=== PATIENT | male | born 1980 | race Asian ===

== ENCOUNTER 2017-02-21 22:28 | Emergency (ER) | payer BC ==
[~2017-02-21] VITALS: Ht 185.4 cm; Wt 113.4 kg
--- OUTSIDE RECORDS SUMMARY | 2017-02-21 22:33 | XMS REPORT | Clinical Summary ---
Author Author [facility] Organization [facility] Address Unknown Phone Unavailable Care Team Providers Care Comic Writer Name Role Phone PCP Unavailable Source Comments Some departments are not documenting in the electronic medical record. If you do not see the information that you expected, contact Release of Information in the Health Information Management department at [phone] for further assistance in locating additional records.[facility] Allergies No Known Allergies Current Medications Prescription Sig. Disp. Refills Start End Date Status Date ARIPiprazole (ABILIFY) 15 Take 1 Tab by mouth 30 Tab 0 07/28/19 Active mg tablet daily. For psychosis 15 Active Problems Problem Noted Date Chronic psychosis 07/27/2014 Social History Tobacco Use Types Packs/Day Years Used Date Never Smoker Sex Assigned at Date Recorded Not on file Last Filed Vital Signs Vital Sign Reading Time Taken Blood Pressure 129/88 07/27/2014 7:57 AM CDT Pulse 79 07/27/2014 7:57 AM CDT Temperature - - Respiratory Rate - - Oxygen Saturation - - Inhaled Oxygen - - Concentration Weight 115.2 kg (254 lb) 07/27/2014 7:57 AM CDT Height 182.9 cm (6') 07/27/2014 7:57 AM CDT Body Mass Index 34.45 07/27/2014 7:57 AM CDT Plan of Treatment Health Maintenance Due Date Last Done Comments PHYSICAL (COMPREHENSIVE) 1989 EXAM PERTUSSIS VACCINE 1993 TETANUS VACCINE 08/06/1999 INFLUENZA VACCINE 09/26/2016 Results Not on filefrom Last 3 Months
--- OUTSIDE RECORDS SUMMARY | 2017-02-21 22:33 | XMS REPORT ---
Author Author HARRY CUEVAS [facility] Address [address] [place] [address] Care Team Providers Care Automation And Control Engineer Name Role Phone HARRY CUEVAS Unavailable PROBLEMS Type Condition ICD9-CM Code [id number] Code Onset Dates Condition Status SNOMED Code Problem Paranoid schizophrenia F20.0 Active 32870109 ALLERGIES No Information SOCIAL HISTORY Never Assessed PLAN OF CARE VITAL SIGNS MEDICATIONS Unknown Medications RESULTS No Results PROCEDURES No Known procedures IMMUNIZATIONS No Known Immunizations
--- OUTSIDE RECORDS SUMMARY | 2017-02-21 22:33 | XMS REPORT ---
Author Author CHRIS BELTRÁN Organization [facility] Address [address] [place] [address] Care Team Providers Care Insole Department Worker Name Role Phone CHRIS BELTRÁN Unavailable PROBLEMS Type Condition ICD9-CM Code EZH30-GI Code Onset Dates Condition Status SNOMED Code Problem Paranoid schizophrenia F20.0 Active 13122515 ALLERGIES No Known Allergies SOCIAL HISTORY Never Assessed PLAN OF CARE Activity Details Follow Up 4 Weeks Reason: VITAL SIGNS Height 72.0 in 2016-06-28 Weight 253.4 lbs 2016-06-28 Heart Rate 88 bpm 2016-06-28 Respiratory Rate 20 2016-06-28 BMI 34.36 kg/m2 2016-06-28 Blood pressure systolic 130 mmHg 2016-06-28 Blood pressure diastolic 90 mmHg 2016-06-28 MEDICATIONS Medication Instructions Dosage Frequency Start Date End Date Duration Status Trihexyphenidyl HCl 2 MG Orally Three times a day 1 tablet with meals 8h Apr, 30 day(s) Active Abilify 10 mg Orally twice a day 1 tablet 12h 30 day(s) Active Vitamin D3 Maximum Strength 5000 UNIT Orally Once a day 1 capsule 24h Active Benztropine Mesylate 0.5 MG Orally PRN q daily with dose of Loxapine 1 tablet June, 30 day(s) Active Loxapine Succinate 5 mg Orally As needed, up to Four times a day 1 capsule June, 30 day(s) Active RESULTS No Results PROCEDURES No Known procedures IMMUNIZATIONS No Known Immunizations
--- OUTSIDE RECORDS SUMMARY | 2017-02-21 22:33 | XMS REPORT | Continuity of Care Document ---
Author Author [facility] Organization [facility] Address Unknown Phone Unavailable Allergies There is no data. Medications There is no data. Problems Date Dx Coded Attending Type Code Diagnosis Diagnosed By 12/06/2014 Ot G47.33 OBSTRUCTIVE SLEEP APNEA (ADULT) (PEDIATR 03/02/2015 FRANKLIN JOSHUA DO Ot G47.33 03/02/2015 FRANKLIN JOSHUA DO Ot Z82.0 08/06/2015 FRANKLIN JOSHUA DO Ot G47.33 OBSTRUCTIVE SLEEP APNEA (ADULT) (PEDIATR 08/06/2015 FRANKLIN JOSHUA DO Ot Z82.0 FAMILY HISTORY OF EPILEPSY AND OTH DIS O 08/09/2015 FRANKLIN JOSHUA DO Ot G47.33 OBSTRUCTIVE SLEEP APNEA (ADULT) (PEDIATR 08/09/2015 FRANKLIN JOSHUA DO Ot Z82.0 FAMILY HISTORY OF EPILEPSY AND OTH DIS O 08/10/2015 FRANKLIN JOSHUA DO Ot G47.33 OBSTRUCTIVE SLEEP APNEA (ADULT) (PEDIATR 08/10/2015 FRANKLIN JOSHUA DO Ot Z82.0 FAMILY HISTORY OF EPILEPSY AND OTH DIS O 08/12/2015 VALENTÍN SHERIDAN DO Ot R51 HEADACHE 09/02/2015 VALENTÍN SHERIDAN DO Ot R51 HEADACHE Procedures There is no data. Results There is no data. Encounters ACCT No. Visit Date/Time Discharge Status Pt. Type Provider Facility Loc./Unit Complaint [id number] 08/09/2015 11:17:00 08/09/2015 23:59:59 CLS Outpatient VALENTÍN SHERIDAN DO [facility] RAD [id number] 02/15/2015 16:37:00 02/15/2015 23:59:59 CLS Outpatient FRANKLIN JOSHUA DO [facility] RT [id number] 12/05/2014 20:18:00 Document Registration
--- OUTSIDE RECORDS SUMMARY | 2017-02-21 22:33 | XMS REPORT ---
Author Author CHRIS BELTRÁN Organization [facility] Address [address] [place] [address] Care Team Providers Care Riveter Name Role Phone CHRIS BELTRÁN Unavailable PROBLEMS Type Condition ICD9-CM Code CPB64-UA Code Onset Dates Condition Status SNOMED Code Problem Paranoid schizophrenia F20.0 Active [id number] ALLERGIES No Information SOCIAL HISTORY Never Assessed PLAN OF CARE Activity Details Follow Up 4 Weeks Reason: VITAL SIGNS MEDICATIONS Medication Instructions Dosage Frequency Start Date End Date Duration Status Loxapine Succinate 5 mg Orally As needed, up to Four times a day 1 capsule 30 day(s) Active Klonopin 0.5 MG Orally Twice a day PRN 1 tablet June, 30 days Active Abilify 10 mg Orally twice a day 1 tablet 12h 30 day(s) Active Benztropine Mesylate 0.5 MG Orally PRN q daily with dose of Loxapine 1 tablet 30 day(s) Active RESULTS No Results PROCEDURES No Known procedures IMMUNIZATIONS No Known Immunizations
--- OUTSIDE RECORDS SUMMARY | 2017-02-21 22:33 | XMS REPORT ---
Author Author CHRIS BELTRÁN [facility] [place] Address [address] [place] [address] Care Team Providers Care Video Intern Name Role Phone CHRIS BELTRÁN Unavailable PROBLEMS Type Condition ICD9-CM Code [id number] Code Onset Dates Condition Status SNOMED Code Problem Paranoid schizophrenia F20.0 Active [id number] ALLERGIES No Information SOCIAL HISTORY Never Assessed PLAN OF CARE VITAL SIGNS MEDICATIONS Unknown Medications RESULTS No Results PROCEDURES No Known procedures IMMUNIZATIONS No Known Immunizations
--- OUTSIDE RECORDS SUMMARY | 2017-02-21 22:33 | XMS REPORT ---
Author Author HARRY CUEVAS [facility] Address [address] [place] [address] Care Team Providers Care [place] Program Coordinator Name Role Phone HARRY CUEVAS Unavailable PROBLEMS Type Condition ICD9-CM Code OON68-UB Code Onset Dates Condition Status SNOMED Code Problem Paranoid schizophrenia F20.0 Active [id number] ALLERGIES No Information SOCIAL HISTORY Never Assessed PLAN OF CARE Activity Details Follow Up prn Reason: VITAL SIGNS MEDICATIONS Medication Instructions Dosage Frequency Start Date End Date Duration Status Abilify Active RESULTS No Results PROCEDURES Procedure Date Ordered Result Body Site Psych diagnostic evaluation, new patient Apr 21, 2016 IMMUNIZATIONS No Known Immunizations
[2017-02-21 23:14] LABS: BASOPHILS % (AUTO) 1 % (0-10); EOSINOPHILS # (AUTO) 0.8 10^3/uL (0.0-0.3); EOSINOPHILS % (AUTO) 10 % (0-10); LYMPHOCYTES # (AUTO) 2.8 X 10^3 (1.0-4.0); LYMPHOCYTES % (AUTO) 33 % (12-44); MEAN CORPUSCULAR HEMOGLOBIN 28 PG (25-34); MEAN CORPUSCULAR HGB CONC 35 G/DL (32-36); MEAN CORPUSCULAR VOLUME 79 FL (80-99); MEAN PLATELET VOLUME 7.9 FL (7.4-10.4); MONOCYTES # (AUTO) 0.5 X 10^3 (0.0-1.0); MONOCYTES % (AUTO) 6 % (0-12); NEUTROPHILS # (AUTO) 4.3 X 10^3 (1.8-7.8); NEUTROPHILS % (AUTO) 50 % (42-75); PLATELET COUNT 334 10^3/uL (130-400); RED BLOOD COUNT 5.09 10^6/uL (4.35-5.85); RED CELL DISTRIBUTION WIDTH 12.9 % (10.0-14.5); WHITE BLOOD COUNT 8.5 10^3/uL (4.3-11.0)
--- NOTE | 2017-02-21 23:14 | ED Lower Extremity ---
General Chief Complaint: Lower Extremity Stated Complaint: BILAT FOOT SWELLING Nursing Triage Note: pt presents to er with complaint of bilat leg swelling, rash, and redness. pt also has redness on his stomach. states the swelling started today and the redness started x2 weeks ago. Nursing Sepsis Screen: No Definite Risk Source: patient Exam Limitations: no limitations History of Present Illness Time seen by provider: 22:55 Initial Comments Here with bilateral lower extremity swelling, redness and rash that extends up both legs. Noted redness down to the toes bilaterally with right greater than left. States that he was standing quite a bit today and did try to work out today because she's had fairly significant recent weight gain. Noted that the redness is been associated with a rash over the last 2 weeks. Denies breathing problems. Denies fever or chills. Onset: this afternoon (swelling) Severity: moderate Pain/Injury Location: bilateral leg Method of Injury: unknown Modifying Factors: Improves With Rest Allergies and Home Medications Allergies Coded Allergies: Penicillins (Verified Allergy, Unknown, 02/21/17) garlic (Verified Allergy, Unknown, 02/21/17) Uncoded Allergies: CEFDINE (Allergy, Unknown, 02/21/17) Home Medications Aripiprazole 10 Mg Tablet, (Reported) Constitutional: see HPI, No chills, No fever, No weakness EENTM: no symptoms reported Respiratory: no symptoms reported, No short of breath, No wheezing, other ( does have obstructive sleep apnea and will occasionally wear his CPAP.) Cardiovascular: No chest pain, edema, No palpitations Gastrointestinal: No abdominal pain, No nausea, No vomiting Genitourinary: no symptoms reported Musculoskeletal: muscle pain, No muscle weakness Skin: change in color, dryness, rash Psychiatric/Neurological: No Symptoms Reported All Other Systems Reviewed Negative Unless Noted: Yes Past Ieijssi-Guqvqm-Boivby Hx Patient Social History Alcohol Use: Denies Use Recreational Drug Use: No Smoking Status: Never a Smoker Recent Foreign Travel: No Contact w/Someone Who Travel: No Recent Infectious Disease Expo: No Surgeries History of Surgeries: No Respiratory History of Respiratory Disorde: Yes Respiratory Disorders: Sleep Apnea Cardiovascular History of Cardiac Disorders: No Neurological History of Neurological Disord: No Reviewed Nursing Assessment Reviewed/Agree w Nursing PMH: Yes Family Medical History Significant Family History: No Pertinent Family Hx Physical Exam Vital Signs Vital Sign - Last 12Hours 02/21/17 22:56 Temp 98.0 Pulse 94 Resp 20 B/P (MAP) 121/76 (91) Pulse Ox 98 O2 Delivery Room Air Capillary Refill : Less Than 3 Seconds General Appearance: WD/WN, no apparent distress HEENT: PERRL/EOMI, pharynx normal Neck: full range of motion, supple Cardiovascular: regular rate, rhythm, no murmur Respiratory: lungs clear, normal breath sounds Gastrointestinal: non tender, soft Back: normal inspection, no CVA tenderness, no vertebral tenderness Legs: bilateral leg swelling, bilateral leg other (rash and redness to bilateral lower legs. Redness extension of the toes to above the knees. Rash noted medially and posterior bilateral over the calves. Swelling and edema encompasses the feet and lower legs up to the knees.) Neurologic/Psychiatric: alert, oriented x 3 Skin: warm/dry, rash (bilateral lower extremities as well as to the left side of the abdomen. Rash appears to emanate from excoriations on the legs and the abdomen but has spread from there.) Progress/Results/Core Measures Results/Orders Lab Results Laboratory Tests Test 02/21/17 23:08 Range/Units White Blood Count 8.5 4.3-11.0 10^3/uL Red Blood Count 5.09 4.35-5.85 10^6/uL Hemoglobin 14.1 13.3-17.7 G/DL Hematocrit 40 40-54 % Mean Corpuscular Volume 79 L 80-99 FL Mean Corpuscular Hemoglobin 28 25-34 PG Mean Corpuscular Hemoglobin Concent 35 32-36 G/DL Red Cell Distribution Width 12.9 10.0-14.5 % Platelet Count 334 130-400 10^3/uL Mean Platelet Volume 7.9 7.4-10.4 FL Neutrophils (%) (Auto) 50 42-75 % Lymphocytes (%) (Auto) 33 12-44 % Monocytes (%) (Auto) 6 0-12 % Eosinophils (%) (Auto) 10 0-10 % Basophils (%) (Auto) 1 0-10 % Neutrophils # (Auto) 4.3 1.8-7.8 X 10^3 Lymphocytes # (Auto) 2.8 1.0-4.0 X 10^3 Monocytes # (Auto) 0.5 0.0-1.0 X 10^3 Eosinophils # (Auto) 0.8 H 0.0-0.3 10^3/uL Basophils # (Auto) 0.0 0.0-0.1 10^3/uL Sodium Level 141 135-145 MMOL/L Potassium Level 3.9 3.6-5.0 MMOL/L Chloride Level 107 98-107 MMOL/L Carbon Dioxide Level 21 21-32 MMOL/L Anion Gap 13 5-14 MMOL/L Blood Urea Nitrogen 18 7-18 MG/DL Creatinine 0.90 0.60-1.30 MG/DL Estimat Glomerular Filtration Rate > 60 BUN/Creatinine Ratio 20 Glucose Level 141 H 70-105 MG/DL Calcium Level 8.9 8.5-10.1 MG/DL Total Bilirubin 0.3 0.1-1.0 MG/DL Aspartate Amino Transf (AST/SGOT) 28 5-34 U/L Alanine Aminotransferase (ALT/SGPT) 59 H 0-55 U/L Alkaline Phosphatase 73 40-136 U/L C-Reactive Protein High Sensitivity 0.14 0.00-0.50 MG/DL B-Type Natriuretic Peptide < 10.0 <100.0 PG/ML Total Protein 7.1 6.4-8.2 GM/DL Albumin 4.1 3.2-4.5 GM/DL My Orders Orders - SAWYER QUIÑONES MD BNP (02/21/17 23:02) Cbc With Automated Diff (02/21/17 23:02) Comprehensive Metabolic Panel (02/21/17 23:02) Hs C Reactive Protein (02/21/17 23:02) Ekg Tracing (02/21/17 23:02) Chest Pa/Lat (2 View) (02/21/17 23:02) Saline Lock/Iv-Start (02/21/17 23:02) Bactrim Ds Po (02/22/17 01:05) Vital Signs/I&O Vital Sign - Last 12Hours 02/21/17 22:56 Temp 98.0 Pulse 94 Resp 20 B/P (MAP) 121/76 (91) Pulse Ox 98 O2 Delivery Room Air Blood Pressure Mean: 91 Progress Note : Progress Note Seen and evaluated. IV, labs and chest x-ray ordered. Monitor patient. 0100: No significant findings. We will treat for cellulitis. Bactrim DS one tab by mouth initiated. Discharged home with return precautions. Patient verbalize understanding instructions and agreement with plan. Diagnostic Imaging Diagonstic Imaging: Xray Plain Films/CT/US/NM/MRI: chest Comments No acute findings Reviewed: Reviewed by Me Departure Impression Impression: Primary Impression: Pedal edema Additional Impression: Cellulitis of both lower extremities Disposition: HOME, SELF-CARE Condition: Stable Departure-Patient Inst. Decision time for Depature: 01:06 Referrals: VALENTÍN SHERIDAN DO (PCP/Family) Primary Care Physician Patient Instructions: Cellulitis (Skin Infection), Adult (DC), Dependent Edema (DC) Add. Discharge Instructions: All discharge instructions reviewed with patient and/or family. Voiced understanding. Elevate legs several times daily. Avoid salt in your diet. Take medications as directed. You may use moisturizing lotions that are not consented over areas of dry skin. Return for worse pain, fever, vomiting, weakness, breathing problems or other concerns as needed. Follow-up with your doctor later this week or early next week for recheck and further evaluation. Scripts Sulfamethoxazole/Trimethoprim (Sulfamethoxazole-Tmp Ds Tablet) 1 Each Tablet 1 EACH PO BID, #20 TAB 0 Refills Prov: SAWYER QUIÑONES MD 02/22/17 SAWYER QUIÑONES MD Feb 21, 2017 23:13
[2017-02-21] MEDS ORDERED: ARIP10TA17 (23:19)
[2017-02-21 23:37] LABS: ALANINE AMINOTRANSFERASE 59 U/L (0-55); ALBUMIN 4.1 GM/DL (3.2-4.5); ANION GAP 13 MMOL/L (5-14); ASPARTATE AMINO TRANSFERASE 28 U/L (5-34); BILIRUBIN,TOTAL 0.3 MG/DL (0.1-1.0); BLOOD UREA NITROGEN 18 MG/DL (7-18); BUN/CREATININE RATIO 20; CALCIUM 8.9 MG/DL (8.5-10.1); CARBON DIOXIDE 21 MMOL/L (21-32); CHLORIDE 107 MMOL/L (98-107); GFR ESTIMATED > 60; GLUCOSE 141 MG/DL (70-105); POTASSIUM 3.9 MMOL/L (3.6-5.0); SODIUM 141 MMOL/L (135-145); TOTAL PROTEIN 7.1 GM/DL (6.4-8.2); hs C REACTIVE PROTEIN 0.14 MG/DL (0.00-0.50)
[2017-02-22] MEDS ORDERED: TRIM/SULFAMETH 160/800 (SEPTRA DS) TAB PO STA (01:05)
[2017-02-22] MEDS ORDERED: SULF-222 PO (01:08)
[2017-02-22 01:36] VITALS: BP 0/0
--- NOTE | 2017-02-22 08:06 | Diagnostic Imaging Report ---
INDICATION: Bilateral leg swelling onset today. TECHNIQUE: Two view chest 11:48 p.m. CORRELATION STUDY: None. FINDINGS: Heart size within normal limits. Slightly prominent right heart border. Vasculature within normal limits. The lungs are clear with no consolidating infiltrate. There is no significant pleural effusion or pneumothorax. Visualized osseous structures are unremarkable. IMPRESSION: 1. Borderline heart size. No evidence for failure. Dictated by: Dictated on workstation # [id number]
== END 2017-02-22 01:36 | disposition home or self-care (01) ==
LOC: EDUNIT# 22:28 → ER 22:30
DX: L03.115 Cellulitis of right lower limb (principal); L03.116 Cellulitis of left lower limb; G47.30 Sleep apnea, unspecified
CPT/HCPCS: 36415; 71020; 80053; 83880; 85025; 86141; 93005